=== PATIENT | female | born 1975 | race Caucasian/White ===

== ENCOUNTER 2019-01-31 14:43 | Emergency (ER) | payer MEDICAID ==
[~2019-01-31] VITALS: Ht 157.5 cm; Wt 83.9 kg
[2019-01-31 15:27] VITALS: BP_SYST 129
--- NOTE | 2019-01-31 17:10 | NUR ---
Patient to ER bed 6 to gown for evaluation. Side rails up. Assumed care.
--- NOTE | 2019-01-31 17:11 | NUR ---
Patient arrived via POV, AAOx4, and ambulatory with limping gait. Patient c/c of right hip pain, onset was 3 days ago. No recent trauma or falls. 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
--- NOTE | 2019-01-31 17:12 | NUR ---
MSE completed by myself.
--- NOTE | 2019-01-31 17:12 | NUR ---
PRAFUL Yusuf examining patient.
[2019-01-31] MEDS ORDERED: KETOROLAC TROMETHAMINE 60 MG/2 ML VIAL IM ONE (17:15)
[2019-01-31] MEDS ORDERED: DEXAMETHASONE SOD PHOSPHATE 10 MG/ML VIAL IM ONE (17:15)
[2019-01-31 17:48] LABS: BILIRUBIN,URINE NEGATIVE (NEGATIVE); BLOOD, URINE NEGATIVE (NEGATIVE); CLARITY/URINE HAZY (CLEAR); COLOR,URINE YELLOW (YELLOW); GLUCOSE,URINE NEGATIVE (NEGATIVE); KETONES,URINE NEGATIVE (NEGATIVE); LEUKOCYTE ESTERASE ,URINE NEGATIVE (NEGATIVE); NITRITE, URINE NEGATIVE (NEGATIVE); PH,URINE 5.5 (5.0-8.0); PROTEIN URINE NEGATIVE (NEGATIVE); UROBILINOGEN,URINE 0.2 (0.2-1.0)
[2019-01-31 18:03] LABS: BACTERIA,URINE MODERATE /HPF (None Seen); RBC,URINE 0-3 /HPF (0-3)
[2019-01-31 18:04] LABS: MUCUS,URINE 2+ /LPF (None Seen); OTHER CASTS, URINE WBC CASTS 2+ /LPF (None Seen)
[2019-01-31 18:20] VITALS: BP_SYST 127
--- NOTE | 2019-01-31 18:20 | NUR ---
Patient given written and verbal discharge instructions and verbalizes understanding. ER MD discussed with patient the results and treatment provided. Patient in stable condition. ID arm band removed. Rx of Tramadol, Motrin, Medrol, Macrobid given. Patient educated on pain management and to follow up with PMD. Pain Scale 5/10. Opportunity for questions provided and answered. Medication side effect fact sheet provided.
== END 2019-01-31 18:20 | disposition home or self-care (01) ==
LOC: SED 14:43
DX: S39.012A Strain of muscle, fascia and tendon of lower back, initial encounter (principal); M54.17 Radiculopathy, lumbosacral region; R03.0 Elevated blood-pressure reading, without diagnosis of hypertension; X50.9XXA Other and unspecified overexertion or strenuous movements or postures, initial encounter; Y93.89 Activity, other specified; Y92.89 Other specified places as the place of occurrence of the external cause; Y99.8 Other external cause status
CPT/HCPCS: 81000; 81025; 87086; 96372; 99283; J1100; J1885

== ENCOUNTER 2021-07-01 07:26 | Emergency (ER) | payer MEDICAID ==
[~2021-07-01] VITALS: Ht 157.5 cm; Wt 79.4 kg
[2021-07-01 07:26] VITALS: BP_SYST 128
--- NOTE | 2021-07-01 07:26 | NUR ---
Patient triaged and placed in waiting room. VSS and patient appears in no acute distress at this time. Accompanied by SELF, awaiting available bed, and MD notified of need for MSE.
[2021-07-01 08:57] LABS: BASOPHILS % (AUTO) 0.8 % (0.0-2.0); EOSINOPHILS # (AUTO) 0.1 K/uL (0.0-0.4); EOSINOPHILS % (AUTO) 1.7 % (0.0-4.0); HEMATOCRIT 35.9 % (36-48); HEMOGLOBIN 12.3 g/dL (12.0-16.0); LYMPHOCYTES % (AUTO) 49.9 % (20.5-51.5); MEAN CORPUSCULAR HEMOGLOBIN 31 pg (27-31); MEAN CORPUSCULAR HGB CONC 34 % (32-36); MEAN CORPUSCULAR VOLUME 90 fL (79.0-98.0); MONOCYTES # (AUTO) 0.5 K/uL (0.0-1.0); MONOCYTES % (AUTO) 7.9 % (1.7-9.3); NEUTROPHILS # (AUTO) 2.4 K/uL (1.8-7.7); NEUTROPHILS % (AUTO) 39.7 % (40.0-70.0); PLATELET COUNT (AUTO) 275 K/uL (130-430); RED BLOOD CELL COUNT(AUTO) 3.99 MIL/uL (4.2-6.2); RED CELL DISTRIBUTION WIDTH 13.4 % (9.0-15.0)
[2021-07-01 09:06] LABS: CALCIUM 8.7 mg/dL (8.4-11.0); CREATININE 0.59 mg/dL (0.55-1.30); POTASSIUM 4.3 mmol/L (3.5-5.1)
[2021-07-01 09:12] LABS: ALBUMIN 3.7 g/dL (3.4-4.8); TOTAL BILIRUBIN 0.3 mg/dL (0.0-1.0)
--- NOTE | 2021-07-01 09:50 | NUR ---
DR REEDER OUTSIDE TO TRIAGE ROOM FOR EVALUATION
[2021-07-01] MEDS ORDERED: IBUPROFEN 600 MG TABLET PO ONE (11:00)
--- NOTE | 2021-07-01 12:07 | NUR ---
TAKEN TO RADIOLOGY VIA AMBULATORY
[2021-07-01] MEDS ORDERED: MAG HYDROX/AL HYDROX/SIMETH 30 ML, LIDOCAINE VISCOUS 2% 15ML (PO) 15 ML, DICYCLOMINE HC... PO ONE ×3 (14:30)
[2021-07-01] MEDS ORDERED: OMEP20CA15 PO (14:50)
[2021-07-01] MEDS ORDERED: HYDR-3917 PO (14:50)
[2021-07-01] MEDS ORDERED: HYDROcodone/ACETAMIN 10-325 MG TAB ONE (15:09)
[2021-07-01] MEDS ORDERED: HYDROcodone/ACETAMIN 10-325 MG TAB PO ONE (15:15)
--- NOTE | 2021-07-01 15:15 | NUR ---
Pt. c/o pain upper abd. describes like heart burn, notified Dr. Núñez and order to medicate with [place] prior to discharge
[2021-07-01 15:20] VITALS: BP_SYST 124
--- NOTE | 2021-07-01 15:20 | NUR ---
Patient given written and verbal discharge instructions and verbalizes understanding. ER Dr Núñez discussed with patient the results and treatment provided. Patient in stable condition. ID arm band removed. Rx of [place] and Omeprazole given. Patient educated on pain management and to follow up with PMD. Pain Scale 7/10, [place] given prior to discharge. Opportunity for questions provided and answered. Medication side effect fact sheet provided.
== END 2021-07-01 15:20 | disposition home or self-care (01) ==
LOC: SED 07:26
DX: R10.12 Left upper quadrant pain (principal); Z79.899 Other long term (current) drug therapy
CPT/HCPCS: 36415; 71045; 76705; 80053; 84484; 85025; 85379; 93005; 99285; J2001